=== PATIENT | female | born 1985 | race Caucasian/White ===

== ENCOUNTER 2019-10-26 17:59 | Emergency (ER) | payer OTHER ==
[2019-10-26 18:15] VITALS: BP 104/57
--- NOTE | 2019-10-26 18:26 | UC ---
Complaint Female HPI - HPI Summary HPI Summary: 33-year-old female presenting with urinary urgency 1 week. Also notes " bladder pressure." Denies dysuria and hematuria. Denies abnormal vaginal discharge. Denies flank pain. Denies n/v/d. Denies appetite change. Denies fever and chills. Patient states she was seen by [facility] and had a negative urinalysis so a urine culture was sent that also came back negative. [facility] told her that they could either start her on an antibiotic or she could be seen again so the patient chose to start Macrobid. Patient states she is currently on day 3 of taking Macrobid. Patient states she has also been taking Azo which helps relieve symptoms. Patient states she did not take Azo this morning to see if the Macrobid was actually helping but states that she noticed her urgency and bladder pressure returning. Patient states she took Azo this afternoon before coming in and "feels much better than she did this morning without taking Azo." Patient states she is unsure what could be causing this, as she has never had a UTI before. Patient also states that the only thing she can think of is maybe her IUD is causing this. Patient states she has had her IUD for 4 years without issues. Patient states she is in a monogamous relationship with her and does not have any concern for STIs. - History Of Current Complaint Chief Complaint: UCGU Stated Complaint: UTI Time Seen by Provider: 10/26/19 18:21 Hx Obtained From: Patient Hx Last Menstrual Period: Pain Intensity: 0 - Allergies/Home Medications Allergies/Adverse Reactions: Allergies Allergy/AdvReac Type Severity Reaction Status Date / Time amoxicillin Allergy Rash Verified 10/26/19 18:15 Home Medications: Home Medications Sulfamethox/Trimethoprim DS* [Bactrim DS 800/160 TAB*] 1 tab PO BID #10 tab [Rx] PMH/Surg Hx/FS Hx/Imm Hx Previously Healthy: Yes - Surgical History Surgical History: None - Family History Known Family History: Positive: Non-Contributory - Social History Alcohol Use: Occasionally Substance Use Type: Marijuana Smoking Status (MU): Never Smoked Tobacco Review of Systems All Other Systems Reviewed And Are Negative: Yes Constitutional: Positive: Negative. Negative: Fever, Chills Respiratory: Positive: Negative Cardiovascular: Positive: Negative Gastrointestinal: Positive: Abdominal Pain - "lower abd/bladder pressure". Negative: Vomiting, Diarrhea, Nausea Genitourinary: Positive: Urgency Musculoskeletal: Positive: Negative Physical Exam - Summary Physical Exam Summary: Vital Signs Reviewed: Yes A+Ox3, no distress, well-appearing Eyes: Conjunctiva Clear ENT: Hearing grossly normal Neck: Positive: Supple Respiratory: Positive: No respiratory distress, No accessory muscle use + CTA throughout no w/r Cardiovascular: RRR nl s1, s2 no m/r Abd: soft + BS nt/nd no guarding Musculoskeletal Exam: JACKSON x 4 without difficulty Neurological: Positive: Alert Psychological: Positive: age appropriate behavior Skin: Positive: no rash, no ecchymosis Vital Signs: Initial Vital Signs Temp 98.4 F 10/26/19 18:08 Pulse 76 10/26/19 18:08 Resp 18 10/26/19 18:08 BP 104/57 10/26/19 18:08 Pulse Ox 97 10/26/19 18:08 Complaint Female Dx - Course Course Of Treatment: Patient presenting with urinary urgency 1 week. Currently on day 3 out of 5 of treatment with macrobid, symptoms still present but improved with Azo. Patient declined pelvic exam and STI testing. POC urinalysis is not performed since patient took Azo today. Urine was instead sent for culture. I informed the patient that I can provide her with a different antibiotic for possible UTI, or that she can wait until the urine culture results are back. Patient prefers to change the antibiotic today. I provided the patient with prescription for Bactrim and instructed to discontinue Macrobid. Instructed to increase fluid intake and continue Azo as directed for symptom relief. I informed the patient that she would be notified with any results that warrant a change in treatment and I also provided her with referral for gynecology if symptoms persist. Patient voiced understanding and agreed with the treatment plan. I also discussed this patient with Dr. Castro who agrees with the plan. - Differential Dx/Diagnosis Differential Diagnosis/HQI/PQRI: Sexually Transmitted Disease, Urinary Tract Infection Provider Diagnosis: Urgency of urination Discharge ED - Sign-Out/Discharge Documenting (check all that apply): Patient Departure All imaging exams completed and their final reports reviewed: No Studies - Discharge Plan Condition: Stable Disposition: HOME Prescriptions: Sulfamethox/Trimethoprim DS* [Bactrim DS 800/160 TAB*] 1 tab PO BID #10 tab Patient Education Materials: Urinary Tract Infection in Women (ED) Referrals: Emilio Steen MD [Medical Doctor] - If Needed Additional Instructions: Discontinue macrobid. Take Bactrim as prescribed. A urine culture has been sent and you will be notified with any results that warrant a change in treatment. You may continue taking Azo as directed for symptom relief. Increase your fluid intake. Follow up with the referral listed below if your symptoms persist. Go to the emergency room if you experience any new or worsening symptoms. - Billing Disposition and Condition Condition: STABLE Disposition: Home
--- NOTE | 2019-10-29 08:23 | UC ---
- Progress Note Progress Note: 10/29/2019 Urine culture final reports: no growth. Pt was Rx Bactrim PO. Please notify Pt or results and advise to stop taking Bactrim PO. Thank you Tammi Napier PA-C Course/Dx - Diagnoses Provider Diagnoses: Urgency of urination Discharge ED - Sign-Out/Discharge Documenting (check all that apply): Post-Discharge Follow Up All imaging exams completed and their final reports reviewed: No Studies - Discharge Plan Condition: Stable Disposition: HOME Prescriptions: Sulfamethox/Trimethoprim DS* [Bactrim DS 800/160 TAB*] 1 tab PO BID #10 tab Patient Education Materials: Urinary Tract Infection in Women (ED) Referrals: Emilio Steen MD [Medical Doctor] - If Needed Additional Instructions: Discontinue macrobid. Take Bactrim as prescribed. A urine culture has been sent and you will be notified with any results that warrant a change in treatment. You may continue taking Azo as directed for symptom relief. Increase your fluid intake. Follow up with the referral listed below if your symptoms persist. Go to the emergency room if you experience any new or worsening symptoms. - Billing Disposition and Condition Condition: STABLE Disposition: Home
== END 2019-10-26 19:00 | disposition home or self-care (01) ==
LOC: UCEAST 17:59
DX: R39.15 Urgency of urination (principal); Z88.0 Allergy status to penicillin
CPT/HCPCS: 87086; 99212; G0463

== ENCOUNTER 2023-01-18 14:42 | Inpatient (IN) ==
[2023-01-18] MEDS ORDERED: Buffered Lidocaine 1% SYRIN 1 ml INTRADERM ONE (15:52)
[2023-01-18] MEDS ORDERED: Lactated Ringers 1000 ml BAG 1,000 ML IV ONE (15:52)
[2023-01-18] MEDS ORDERED: Lactated Ringers 1000 ml BAG 1,000 ML IV SCH ×2 (16:00→21:00)
[2023-01-18 17:28] LABS: Urine Benzodiazepine Screen None Detected (None Detect); Urine Cannabinoids Screen None Detected (None Detect); Urine Opiates Screen None Detected (None Detect)
[2023-01-18] MEDS ORDERED: RHO D Immune Globulin (HUMAN) 300 MCG = 1,500 I.U. INJ IM PRN (20:02)
[2023-01-18] MEDS ORDERED: Glycerin ADULT 2.4 gm SUPP PR PRN (20:02)
[2023-01-18] MEDS: Dibucaine 1% OINT 28.35 GM TUBE PR PRN (20:53)
[2023-01-18] MEDS: Witch Hazel PAD JAR TOPICAL PRN (20:53)
[2023-01-19] MEDS ORDERED: Lidocaine 1% VIAL 10 MG/ML VIAL 30 ML ONE (01:37)
[2023-01-19 07:05] LABS: ABS Eosinophils 0.1 10^3/uL (0.0-0.5); ABS Lymphocytes 1.7 10^3/uL (1.0-4.8); ABS Monocytes 1.1 10^3/uL (0.0-0.9); ABS Neutrophils 11.5 10^3/uL (1.5-7.6); Eosinophil % 0.5 %; Hematocrit 37.6 % (35-45); Hemoglobin 13.3 g/dL (11.5-14.3); Lymphocyte % 11.7 %; Mean Corpuscular Hemoglobin 29.7 pg (27-33); Mean Corpuscular Hgb Conc 35.3 g/dL (31-36); Mean Corpuscular Volume 84.2 fL (80-97); Platelet Count 236 10^3/uL (150-450); Red Blood Count 4.47 10^6/uL (3.63-4.92); Red Cell Distribution Width 14.4 % (12-17); White Blood Count 14.3 10^3/uL (3.8-11.8)
[2023-01-19] MEDS ORDERED: Measles, Mumps,Rubella VACC 0.5 ML/VIAL SUBCUT ONE (09:00)
[2023-01-20 07:29] VITALS: BP 96/64
[2023-01-20] MEDS ORDERED: Measles, Mumps,Rubella VACC 0.5 ML/VIAL SUBCUT ONE (09:30)
[2023-01-20] MEDS: Dibucaine 1% OINT 28.35 GM TUBE PR PRN (13:11)
[2023-01-20] MEDS: Witch Hazel PAD JAR TOPICAL PRN (13:11)
== END 2023-01-20 14:30 | disposition home or self-care (01) | DRG 807 ==
LOC: MCHOBOUT 14:42 → MCHOB 15:27
PROVIDERS: ADMIT Midwife; ATTEND Midwife